=== PATIENT | female | born 1945 | race Caucasian/White ===

== ENCOUNTER 2018-01-23 22:51 | Observation (INO) | payer OTHER ==
[2018-01-23 23:29] LABS: ADD MAN DIFF? NO
[2018-01-23 23:32] LABS: BASOPHILS % 0.4 % (0.0-2.0); EOSINOPHILS # 0.2 10^3/ul (0.0-0.5); EOSINOPHILS % 2.9 % (0.0-7.0); HEMATOCRIT 41.6 % (37.0-47.0); HEMOGLOBIN 13.6 g/dl (12.0-16.0); LYMPHOCYTES # 2.1 10^3/ul (0.8-2.9); LYMPHOCYTES % 25.2 % (15.0-51.0); MEAN CORPUSCULAR HEMOGLOBIN 31.1 pg (29.0-33.0); MEAN CORPUSCULAR HGB CONC 32.7 g/dl (32.0-37.0); MEAN PLATELET VOLUME 9.6 fl (7.4-10.4); MONOCYTE # 0.4 10^3/ul (0.3-0.9); MONOCYTES % 4.6 % (0.0-11.0); NEUTROPHIL # 5.5 10^3/ul (1.6-7.5); NEUTROPHILS % 66.4 % (39.0-77.0); NUCLEATED RED BLOOD CELLS% 0.2 /100WBC (0.0-0.0); PLATELET COUNT 219 10^3/UL (140-415); RED BLOOD COUNT 4.38 10^6/ul (4.20-5.40); RED CELL DISTRIBUTION WIDTH 12.8 % (11.5-14.5)
[2018-01-23 23:32] LABS: WHITE BLOOD COUNT 8.3 10^3/ul (4.8-10.8)
[2018-01-23 23:51] LABS: ALANINE AMINOTRANSFERASE 74 IU/L (13-69); ALBUMIN 4.3 g/dl (3.3-4.9); ALBUMIN/GLOBULIN RATIO 1.16; ALKALINE PHOSPHATASE 66 IU/L (42-121); ASPARTATE AMINO TRANSFERASE 82 IU/L (15-46); BILIRUBIN,INDIRECT 0.3 mg/dl (0-1.1); BILIRUBIN,TOTAL 0.3 mg/dl (0.2-1.3); BLOOD UREA NITROGEN 8 mg/dl (7-20); CALCIUM 9.4 mg/dl (8.4-10.2); CARBON DIOXIDE 28 mmol/L (21-31); CHLORIDE 108 mmol/L (97-110); GLUCOSE 101 mg/dl (70-220); SODIUM 143 mmol/L (135-144)
[2018-01-23 23:52] LABS: ACETAMINOPHEN < 10.0 ug/ml (10.0-30.0); ETHANOL < 10.0 mg/dl (0-0); SALICYLATE < 1.0 mg/dl (5.0-30.0)
[2018-01-24 00:08] LABS: POTASSIUM 4.2 mmol/L (3.5-5.1)
[2018-01-24 00:13] LABS: ANION GAP 11 (5-13)
[2018-01-24 00:57] LABS: ADD UMIC YES; UR ASCORBIC ACID NEGATIVE (NEGATIVE); UR BILIRUBIN (Dip) NEGATIVE (NEGATIVE); UR BLOOD (Dip) 1+ mg/dL (NEGATIVE); UR CLARITY CLEAR (CLEAR); UR COLOR STRAW (YELLOW); UR GLUCOSE (Dip) NEGATIVE (NEGATIVE); UR KETONES (Dip) NEGATIVE (NEGATIVE); UR LEUKOCYTE ESTERASE (Dip) NEGATIVE Leu/ul (NEGATIVE); UR NITRITE (Dip) NEGATIVE (NEGATIVE); UR RBC 0 /HPF (0-5); UR SPECIFIC GRAVITY (Dip) 1.006 (1.003-1.030); UR TOTAL PROTEIN (Dip) NEGATIVE (NEGATIVE); UR UROBILINOGEN (Dip) NEGATIVE (NEGATIVE); UR WBC 2 /HPF (0-5)
[2018-01-24] MEDS: HYDROCODONE/APAP (10/325) TAB PO (02:57)
[2018-01-24 03:13] LABS: BENZODIAZEPINES NEGATIVE (NEGATIVE); CANNABINOIDS NEGATIVE (NEGATIVE); COCAINE NEGATIVE (NEGATIVE); OPIATES POSITIVE (NEGATIVE)
[2018-01-24 03:14] LABS: AMPHETAMINE/METHAMPHETAMINE NEGATIVE (NEGATIVE); BARBITURATES NEGATIVE (NEGATIVE)
[2018-01-24 06:07] LABS: LACTIC ACID 1.4 mmol/L (0.5-2.0)
[2018-01-24] MEDS ORDERED: ONDANSETRON 4 MG INJ IV (06:30)
[2018-01-24] MEDS ORDERED: NACL 0.9% 3 ML SYG IV (06:30)
[2018-01-24] MEDS ORDERED: clonAZEPAM 0.5 MG TAB PO (06:30)
[2018-01-24] MEDS ORDERED: SUMATRIPTAN 50 MG TAB PO (06:30)
[2018-01-24] MEDS ORDERED: MECLIZINE 25 MG TAB PO (06:30)
[2018-01-24] MEDS: ACETAMINOPHEN 325 MG TAB PO (07:15)
[2018-01-24] MEDS: LEVOTHYROXINE 75 MCG TAB PO (08:38)
[2018-01-24] MEDS: ASPIRIN 81 MG TAB PO (09:11)
[2018-01-24] MEDS: PANTOPRAZOLE (EC) 40 MG TAB PO (09:11)
[2018-01-24] MEDS: HEPARIN 5,000 UNIT/1 ML VIAL SC ×2 (09:12→23:30)
[2018-01-24] MEDS: HYDROCHLOROTHIAZIDE 12.5 MG CAP PO (10:33)
[2018-01-24] MEDS: BENAZEPRIL 10 MG TAB PO (10:34)
[2018-01-24] MEDS: TOPIRAMATE 25 MG TAB PO (10:35)
[2018-01-24] MEDS: SUMATRIPTAN 6 MG/0.5 ML INJ SC (11:33)
[2018-01-24] MEDS: LACTULOSE 30ML CUP PO ×2 (12:24→17:42)
[2018-01-24] MEDS: IOHEXOL 100 ML (21:57)
[2018-01-24] MEDS: SOD CHLORIDE 0.9% 100 ML (21:57)
[2018-01-25] MEDS: IBUPROFEN 200 MG TAB PO (05:28)
[2018-01-25] MEDS: PANTOPRAZOLE (EC) 40 MG TAB PO (05:44)
[2018-01-25] MEDS: LACTULOSE 30ML CUP PO ×4 (05:45→17:28)
[2018-01-25] MEDS: LEVOTHYROXINE 75 MCG TAB PO (05:47)
[2018-01-25 06:29] LABS: ADD MAN DIFF? NO
[2018-01-25 06:43] LABS: BASOPHILS % 0.5 % (0.0-2.0); EOSINOPHILS # 0.3 10^3/ul (0.0-0.5); EOSINOPHILS % 4.8 % (0.0-7.0); HEMATOCRIT 39.4 % (37.0-47.0); HEMOGLOBIN 12.8 g/dl (12.0-16.0); LYMPHOCYTES # 2.2 10^3/ul (0.8-2.9); MEAN CORPUSCULAR HEMOGLOBIN 31.1 pg (29.0-33.0); MEAN CORPUSCULAR HGB CONC 32.5 g/dl (32.0-37.0); MEAN CORPUSCULAR VOLUME 95.9 fl (82.0-101.0); MEAN PLATELET VOLUME 9.9 fl (7.4-10.4); MONOCYTE # 0.4 10^3/ul (0.3-0.9); MONOCYTES % 6.5 % (0.0-11.0); NEUTROPHILS % 50.7 % (39.0-77.0); PLATELET COUNT 211 10^3/UL (140-415); RED BLOOD COUNT 4.11 10^6/ul (4.20-5.40); RED CELL DISTRIBUTION WIDTH 12.9 % (11.5-14.5)
[2018-01-25 06:43] LABS: WHITE BLOOD COUNT 5.8 10^3/ul (4.8-10.8)
[2018-01-25 07:06] LABS: ALANINE AMINOTRANSFERASE 78 IU/L (13-69); ALBUMIN 3.8 g/dl (3.3-4.9); ALBUMIN/GLOBULIN RATIO 1.52; ALKALINE PHOSPHATASE 52 IU/L (42-121); ANION GAP 11 (5-13); ASPARTATE AMINO TRANSFERASE 67 IU/L (15-46); BILIRUBIN,INDIRECT 0.5 mg/dl (0-1.1); BILIRUBIN,TOTAL 0.5 mg/dl (0.2-1.3); BLOOD UREA NITROGEN 14 mg/dl (7-20); CALCIUM 9.6 mg/dl (8.4-10.2); CARBON DIOXIDE 28 mmol/L (21-31); CHLORIDE 105 mmol/L (97-110); CHOLESTEROL 246 mg/dl (100-200); CREATININE 0.73 mg/dl (0.44-1.00); GLUCOSE 85 mg/dl (70-220); HDL CHOLESTEROL 41 mg/dl (33-92); LDL CHOLESTEROL,CALCULATED 147 mg/dl; MAGNESIUM 2.1 mg/dl (1.7-2.5); POTASSIUM 4.2 mmol/L (3.5-5.1); SODIUM 144 mmol/L (135-144); TOTAL PROTEIN 6.3 g/dl (6.1-8.1); TRIGLYCERIDES 291 mg/dl (0-149)
[2018-01-25 07:15] LABS: HEMOGLOBIN A1C 5.1 % (0-5.9)
[2018-01-25] MEDS: HYDROCHLOROTHIAZIDE 12.5 MG CAP PO (08:48)
[2018-01-25] MEDS: BENAZEPRIL 10 MG TAB PO (08:48)
[2018-01-25] MEDS: ASPIRIN 81 MG TAB PO (08:48)
[2018-01-25] MEDS: HEPARIN 5,000 UNIT/1 ML VIAL SC ×2 (08:53→21:15)
[2018-01-25] MEDS: IBUPROFEN 400 MG TAB PO ×2 (11:45→17:28)
[2018-01-25] MEDS: AMOXICILLIN/CLAV 875 MG TAB PO ×2 (11:46→20:24)
[2018-01-26] MEDS: LACTULOSE 30ML CUP PO ×3 (06:41→12:16)
[2018-01-26] MEDS: IBUPROFEN 400 MG TAB PO ×3 (06:42→12:19)
[2018-01-26] MEDS: PANTOPRAZOLE (EC) 40 MG TAB PO (06:42)
[2018-01-26] MEDS: LEVOTHYROXINE 75 MCG TAB PO (07:03)
[2018-01-26] MEDS: AMOXICILLIN/CLAV 875 MG TAB PO (08:46)
[2018-01-26] MEDS: BENAZEPRIL 10 MG TAB PO (08:46)
[2018-01-26] MEDS: ASPIRIN 81 MG TAB PO (08:46)
[2018-01-26] MEDS: HYDROCHLOROTHIAZIDE 12.5 MG CAP PO (08:47)
[2018-01-26] MEDS: HEPARIN 5,000 UNIT/1 ML VIAL SC (08:54)
[2018-01-26] MEDS: FISH OIL 1,000 MG CAP PO (11:13)
[2018-01-26] MEDS ORDERED: ATORVASTATIN 10 MG TAB PO (21:00)
== END 2018-01-26 13:33 | disposition home or self-care (01) ==
LOC: E/R 22:51 → 6WM 01-24 02:48
DX: R41.3 Other amnesia (principal); J01.00 Acute maxillary sinusitis, unspecified; I10 Essential (primary) hypertension; Z86.73 Personal history of transient ischemic attack (TIA), and cerebral infarction without residual deficits
CPT/HCPCS: 70450; 70498; 70551; 71045; 80053; 80061; 80307; 81001; 82962; 83036; 83605; 83735; 84443; 85025; 92610; 93005; 93306; 95819; 97161; 99285-25; G0378